=== PATIENT | male | born 1965 | race Caucasian/White ===

== ENCOUNTER → 2016-12-07 | Day surgery (SDC) | payer BC ==
[2016-11-29 11:19] VITALS: Ht 167.6 cm; Wt 129.6 kg
[~2016-12-07] VITALS: Ht 167.6 cm; Wt 129.6 kg
[~2016-12-07] MED LIST: ATOR-22 PO; COEN75CA PO; HYDR12.55 PO; KRIL1000 PO; LIDOCAINE HCL 2% 2 ML VIAL (20MG/ML) ONE; LOSA50TA6 PO; MIDAZOLAM HCL 1 MG/ML 2ML VIAL ONE; MOME6000 NAE; ONDANSETRON INJ 2 MG/ML 2 ML VIAL ONE; PROPOFOL IV EMULSION 10 MG/ML 20 ML VIAL IV ONE; ROSU5TAB PO; nasonex INTNAS
[2016-12-07 14:43] VITALS: PULSE 81; TEMP 36.6; O2SAT 97
[2016-12-07 14:51] VITALS: BP 181/86
--- NOTE | 2016-12-07 15:04 | Endo History and Physical ---
History & Physical Date of Service: Dec 07, 2016. Chief Complaint: family history of colon cancer,screening,history of polyps Referring Physician: DEN Orellana III History of Present Illness 51 yo CM who presents for colonoscopy secondary to family history of colon cancer. Past Surgical History Hx Cardiac Surgery: No Hx Internal Defibrillator: No Hx Pacemaker: No Hx Abdominal Surgery: No Hx of Implantable Prosthesis: No Hx Post-Op Nausea and Vomiting: No Hx Cancer Surgery: No Hx Thoracic Surgery: No Hx Orthopedic: No Hx Urinary Tract Surgery: No Family History Colon CA, Polyp Social History Smoking Status: Former Smoker Hx Substance Use: No Hx Alcohol Use: Yes (OCCASSIONALLY) Allergies Coded Allergies: Penicillins (Verified Allergy, Mild, UNSURE, OVER 30 YEARS AGO, 12/07/16) Current Medications Reported Home Medications Medications Dose Route/Sig Max Daily Dose Days Date Category [nasonex] 1 Fiatt INTNAS BID 12/07/16 Reported Lipitor (Atorvastatin Calcium) 20 Mg Tab 1 Tab PO DAILY 30 12/07/16 Reported Vital Signs Weight (Kilograms): 129.55 Height (Feet): 5 Height (Inches): 6 Date Time Temp Pulse Resp B/P Pulse Ox O2 Delivery O2 Flow Rate FiO2 12/07/16 14:51 181/86 12/07/16 14:49 195/98 12/07/16 14:43 36.6 81 20 222/91 97 Room Air 217/103 Physical Exam General Appearance: WD/WN, no apparent distress Respiratory/Chest: Auscultation: breath sounds normal Cardiovascular: Heart Auscultation: RRR Abdomen: Bowel Sounds: normal Inspection & Palpation: soft, non-distended, no tenderness, guarding & rebound Assessment and Plan Assessment: 51 yo CM who presents for colonoscopy secondary to family history of colon cancer. Plan: Patient with high blood pressure, morbid obesity, and has not been seen by PCP in many years. Will cancel colonoscopy at present after discussion with Dr. Milton of Anesthesia.
--- NOTE | 2016-12-07 15:14 | Anesthesiology Progress Note ---
Anesthesia Progress Note Date of Service Dec 07, 2016. Progress Notes Pt was scheduled for a screening colonoscopy today. Upon admission, his blood pressure ranged from 185-220/90/110. The pt remains asymptomatic without CP, NOEL , or SOB. The pt does not regularly see a physician. The pt is scheduled to see his primary care physician next week. I spoke with Dr. Bell, and we were in agreement that the procedure be postponed until the patient had better blood pressure control. Dr. Bell and I spoke with the patient about our concerns. He was understanding of the situation.
== END | disposition home or self-care (01) ==
LOC: C.GI 14:23
PROVIDERS: ATTEND Internal Medicine
DX: Z12.11 Encounter for screening for malignant neoplasm of colon (principal); Z86.010 Personal history of colon polyps; Z80.0 Family history of malignant neoplasm of digestive organs; Z87.891 Personal history of nicotine dependence; Z88.0 Allergy status to penicillin

== ENCOUNTER → 2016-12-10 | Outpatient (CLI) | payer BC ==
[~2016-12-10] MED LIST changes: -LIDOCAINE HCL 2% 2 ML VIAL (20MG/ML) ONE; -MIDAZOLAM HCL 1 MG/ML 2ML VIAL ONE; -ONDANSETRON INJ 2 MG/ML 2 ML VIAL ONE; -PROPOFOL IV EMULSION 10 MG/ML 20 ML VIAL IV ONE
[2016-12-10 13:19] LABS: ALT/SGPT 41 U/L (12-78); AST/SGOT 21 U/L (15-37); BLOOD UREA NITROGEN 15 mg/dl (7-18); BUN/CREATININE RATIO 14.8 (10-20); CALCIUM 8.9 mg/dl (8.5-10.1); CARBON DIOXIDE 31 mmol/L (21-32); CHLORIDE 106 mmol/L (98-107); GLUCOSE 87 mg/dl (70-99); SODIUM 143 mmol/L (136-145)
[2016-12-10 13:21] LABS: ALB/GLOB RATIO 1.1 (0.9-2); ALKALINE PHOSPHATASE 71 U/L (45-117); CHOLESTEROL 198 mg/dl (0-200); CHOLESTEROL/HDL RATIO 6.4; HDL CHOLESTEROL 31 mg/dl; LDL CHOLESTEROL CALCULATED 143 mg/dl; TRIGLYCERIDES 122 mg/dl (0-150); VERY LOW DENSITY LIPOPROT CALC 24 mg/dl
== END | disposition home or self-care (01) ==
LOC: C.LABBC 10:03
PROVIDERS: ATTEND Nurse Practitioner Family
DX: J31.0 Chronic rhinitis (principal); R01.1 Cardiac murmur, unspecified; E78.5 Hyperlipidemia, unspecified; E66.9 Obesity, unspecified

== ENCOUNTER → 2017-01-14 | Outpatient (CLI) | payer BC ==
[2017-01-14 13:42] LABS: MAGNESIUM 2.3 mg/dl (1.8-2.4); THYROID STIMULATING HORMONE 0.924 uIu/ml (0.300-4.500)
== END | disposition home or self-care (01) ==
LOC: C.LABBC 11:10
PROVIDERS: ATTEND Nurse Practitioner Family
DX: I10 Essential (primary) hypertension (principal)

== ENCOUNTER → 2017-03-15 | Day surgery (SDC) | payer BC ==
[2017-03-08 11:21] VITALS: Ht 167.6 cm; Wt 129.6 kg
[~2017-03-15] VITALS: Ht 167.6 cm; Wt 129.6 kg
[~2017-03-15] MED LIST changes: -ATOR-22 PO; +LIDOCAINE HCL 2% 2 ML VIAL (20MG/ML) ONE; +MIDAZOLAM HCL 1 MG/ML 2ML VIAL ONE; +ONDANSETRON INJ 2 MG/ML 2 ML VIAL ONE; +PROPOFOL IV EMULSION 10 MG/ML 20 ML VIAL IV ONE; +SODIUM CHLORIDE 0.9% 500ML 500 ML IV ONE; -nasonex INTNAS
--- NOTE | 2017-03-15 11:30 | Endo History and Physical ---
History & Physical Date of Service: Mar 15, 2017. Chief Complaint: Family history of colon cancer (father) History of colon polyps Referring Physician: Lorenzo Mortensen History of Present Illness 51 yo CM who presents for colonoscopy secondary to history of colon polyps and family history of colon polyps. Past Surgical History Hx Cardiac Surgery: No Hx Internal Defibrillator: No Hx Pacemaker: No Hx Abdominal Surgery: No Hx Post-Op Nausea and Vomiting: No Hx Cancer Surgery: No Hx Thoracic Surgery: No Hx Orthopedic: No Hx Urinary Tract Surgery: No Family History Colon CA, Polyp Social History Smoking Status: Former Smoker Hx Substance Use: No Hx Alcohol Use: Yes (OCCASIONAL) Allergies Coded Allergies: Penicillins (Verified Allergy, Mild, UNSURE, OVER 30 YEARS AGO, 03/08/17) Current Medications Reported Home Medications Medications Dose Route/Sig Max Daily Dose Days Date Category Co Q-10 (Coenzyme Q10 (Ubidecarenone)) 75 Mg Cap 1 Cap PO QPM 03/08/17 Reported Krill Oil 1 Cap Cap 1 Cap PO QPM 03/08/17 Reported Crestor (Rosuvastatin Calcium) 5 Mg Tab 5 Mg PO QAM 03/08/17 Reported Mometasone Furoate (Mometasone Furoate (Nasal)) 50 Mcg/Act Spr 2 Sprays BHUPENDRA HS 03/08/17 Reported Cozaar (Losartan Potassium) 50 Mg Tab 50 Mg PO BID 03/08/17 Reported Hydrochlorothiazide 12.5 Mg Tab 1 Tab PO BID 03/08/17 Reported Vital Signs Weight (Kilograms): 129.55 Height (Feet): 5 Height (Inches): 6 Physical Exam General Appearance: WD/WN, no apparent distress Respiratory/Chest: Auscultation: breath sounds normal Cardiovascular: Heart Auscultation: RRR Abdomen: Bowel Sounds: normal Inspection & Palpation: soft, non-distended, no tenderness, guarding & rebound Assessment and Plan Assessment: 51 yo CM who presents for colonoscopy secondary to history of colon polyps and family history of colon polyps. Plan: Proceed with colonoscopy.
[2017-03-15 11:34] VITALS: TEMP 36.9
--- NOTE | 2017-03-15 12:33 | Discharge Instructions ---
Endoscopy Patient Instructions Date / Procedure(s) Performed Mar 15, 2017. Colonoscopy Allergy Information Coded Allergies: Penicillins (Verified Allergy, Mild, UNSURE, OVER 30 YEARS AGO, 03/08/17) Discharge Date / Findings Mar 15, 2017. Ascending colon polyps x3 Internal hemorrhoids Medication Instructions OK to resume all medications today as prescribed Reported Home Medications Medications Dose Route/Sig Max Daily Dose Days Date Category Co Q-10 (Coenzyme Q10 (Ubidecarenone)) 75 Mg Cap 1 Cap PO QPM 03/08/17 Reported Krill Oil 1 Cap Cap 1 Cap PO QPM 03/08/17 Reported Crestor (Rosuvastatin Calcium) 5 Mg Tab 5 Mg PO QAM 03/08/17 Reported Mometasone Furoate (Mometasone Furoate (Nasal)) 50 Mcg/Act Spr 2 Sprays BHUPENDRA HS 03/08/17 Reported Cozaar (Losartan Potassium) 50 Mg Tab 50 Mg PO BID 03/08/17 Reported Hydrochlorothiazide 12.5 Mg Tab 1 Tab PO BID 03/08/17 Reported Provider Instructions Activity Restrictions - No exercising or heavy lifting for 24 hours. - Do not drink alcohol the day of the procedure. - Do not drive a car or operate machinery until the day after the procedure. - Do not make any important decisions or sign important papers in 24 hours after the procedure. Following Day: - Return to full activity which may include returning to work/school. Diet Start your diet with liquids and light foods (jello, soup, juice, toast). Then eat your usual diet if not nauseated. Treatment For Common After Affects For mild abdominal pain, bloating, or excessive gas: - Rest - Eat lightly - Lie on right side Follow-Up Information Follow-up with DEN Orellana III as scheduled Anesthesia Information What You Should Know You have had a procedure that required some medicine to reduce anxiety and discomfort. This treatment is called moderate sedation. After receiving the treatment, you may be sleepy, but you will be able to breathe on your own. The effects of the treatment may last for several hours. Follow these instructions along with Activity/Diet recommendations noted above: * Do NOT do anything where dizziness or clumsiness would be dangerous. * Rest quietly at home today, then you can be up and about tomorrow. * Have a responsible person stay with you the rest of today. * You may have had an I.V. today. If so, you may take the dressing off later today. Recommendations Call your doctor if: * Trouble breathing * Continuous vomiting for more than 24 hours * Temperature above 101 degrees * Severe abdominal pain or bloating * Pain not relieved by pain medicine ordered * There is increased drainage or redness from any incision * A large amount of rectal bleeding greater than 2-3 tablespoons. (If you had a polyp/s removed or have hemorrhoids, a small amount of blood - from the rectum is to be expected.) * You have any unanswered questions or concerns. IN THE EVENT OF A SERIOUS EMERGENCY, GO TO THE NEAREST EMERGENCY ROOM Your discharge instructions were prepared by provider Rodrigo Bell. Patient Instructions Signature Page Jarocho Baugh Patient (or Guardian) Signature/Date: I have read and understand the instructions given to me by my caregivers. Caregiver/RN/Doctor Signature/Date: The above-named patient and/or guardian has received patient instructions on this date. + Original Patient Signature Page (only) stays with chart. Please make copy for patient.
--- NOTE | 2017-03-15 12:36 | GI REPORT ---
Procedure Date: 03/15/2017 12:06 PM Procedure: Colonoscopy Indications: High risk colon cancer surveillance: Personal history of colonic polyps, Family history of colon cancer in a first-degree relative Medicines: Monitored Anesthesia Care Complications: No immediate complications. Estimated Blood Loss: Estimated blood loss: none. Procedure: Pre-Anesthesia Assessment: - Prior to the procedure, a History and Physical was performed, and patient medications and allergies were reviewed. The patient's tolerance of previous anesthesia was also reviewed. The risks and benefits of the procedure and the sedation options and risks were discussed with the patient. All questions were answered, and informed consent was obtained. Prior Anticoagulants: The patient has taken no previous anticoagulant or antiplatelet agents. ASA Grade Assessment: II - A patient with mild systemic disease. After reviewing the risks and benefits, the patient was deemed in satisfactory condition to undergo the procedure. After I obtained informed consent, the scope was passed under direct vision. Throughout the procedure, the patient's blood pressure, pulse, and oxygen saturations were monitored continuously. The scope was introduced through the anus and advanced to the terminal ileum. The colonoscopy was performed without difficulty. The patient tolerated the procedure well. The quality of the bowel preparation was good. The terminal ileum, ileocecal valve, appendiceal orifice, and rectum were photographed. Findings: Three sessile polyps were found in the ascending colon. The polyps were 4 to 9 mm in size. These polyps were removed with a hot snare. Resection and retrieval were complete. To prevent bleeding after the polypectomy, two hemostatic clips were successfully placed (MR conditional). There was no bleeding at the end of the procedure. Non-bleeding internal hemorrhoids were found during retroflexion. The hemorrhoids were small. Impression: - Three 4 to 9 mm polyps in the ascending colon, removed with a hot snare. Resected and retrieved. Clips (MR conditional) were placed. - Non-bleeding internal hemorrhoids. Recommendation: - Resume previous diet. - Continue present medications. - Repeat colonoscopy for surveillance based on pathology results. - Return to primary care physician as previously scheduled. Rodrigo Bell DO 03/15/2017 12:35:16 PM This report has been signed electronically. Note Initiated On: 03/15/2017 12:06 PM I attest to the content of the Intraoperative Record and orders documented therein, exceptions below
[2017-03-15 13:06] VITALS: BP 129/81; PULSE 70; O2SAT 94
--- NOTE | 2017-03-15 13:33 | Anesthesiology Progress Note ---
Anesthesia Post Op Note Date & Time Mar 15, 2017 at 13:32 Vital Signs Pain Intensity: 0 Vital Signs Past 12 Hours Date Time Temp Pulse Resp B/P Pulse Ox O2 Delivery O2 Flow Rate FiO2 03/15/17 13:06 70 20 129/81 94 Room Air 03/15/17 12:48 67 20 147/78 94 Room Air 03/15/17 12:33 79 20 141/78 95 Room Air 03/15/17 11:34 36.9 91 20 156/86 97 Room Air Notes Mental Status: alert / awake / arousable, participated in evaluation Pt Amnestic to Procedure: Yes Nausea / Vomiting: adequately controlled Pain: adequately controlled Airway Patency, RR, SpO2: stable & adequate BP & HR: stable & adequate Hydration State: stable & adequate Anesthetic Complications: no major complications apparent
== END | disposition home or self-care (01) ==
LOC: C.GI 10:58
PROVIDERS: ATTEND Internal Medicine
DX: Z12.11 Encounter for screening for malignant neoplasm of colon (principal); D12.2 Benign neoplasm of ascending colon; K64.8 Other hemorrhoids; Z87.891 Personal history of nicotine dependence; Z83.71 Family history of colonic polyps; Z80.0 Family history of malignant neoplasm of digestive organs

== ENCOUNTER → 2017-06-10 | Outpatient (CLI) | payer BC ==
[~2017-06-10] MED LIST changes: -LIDOCAINE HCL 2% 2 ML VIAL (20MG/ML) ONE; -MIDAZOLAM HCL 1 MG/ML 2ML VIAL ONE; -ONDANSETRON INJ 2 MG/ML 2 ML VIAL ONE; -PROPOFOL IV EMULSION 10 MG/ML 20 ML VIAL IV ONE; -SODIUM CHLORIDE 0.9% 500ML 500 ML IV ONE
[2017-06-10 11:16] LABS: BASO % 0.3 %; BASO ABS # 0.02 K/uL (0-0.2); COMPLETE YES; EOS % 6.8 %; HEMATOCRIT 46.4 % (42-52); IG% 0.2 %; LYMPH % 32.3 %; LYMPH ABS # 2.06 K/uL (1.2-3.4); MEAN CELL VOLUME 92.8 fL (80-100); MEAN CORPUSCULAR HGB CONC 33.4 g/dl (32-36); MEAN PLATELET VOLUME 11.6 fL (7.4-10.4); MONO % 8.5 %; NEUT % 51.9 %; PLATELET COUNT 228 K/uL (130-400); WHITE BLOOD COUNT 6.37 K/uL (4.8-10.8)
[2017-06-10 11:26] LABS: ALT/SGPT 48 U/L (12-78); BLOOD UREA NITROGEN 21 mg/dl (7-18); BUN/CREATININE RATIO 18.7 (10-20); CALCIUM 9.4 mg/dl (8.5-10.1); CARBON DIOXIDE 31 mmol/L (21-32); CHLORIDE 104 mmol/L (98-107); CHOLESTEROL 165 mg/dl (0-200); GLUCOSE 87 mg/dl (70-99); POTASSIUM 4.3 mmol/L (3.5-5.1); SODIUM 139 mmol/L (136-145); TRIGLYCERIDES 110 mg/dl (0-150); VERY LOW DENSITY LIPOPROT CALC 22 mg/dl
[2017-06-10 11:30] LABS: ALB/GLOB RATIO 1.1 (0.9-2); ALKALINE PHOSPHATASE 63 U/L (45-117); AST/SGOT 21 U/L (15-37); CHOLESTEROL/HDL RATIO 5.9; HDL CHOLESTEROL 28 mg/dl; LDL CHOLESTEROL CALCULATED 115 mg/dl
== END | disposition home or self-care (01) ==
LOC: C.LABBC 09:01
PROVIDERS: ATTEND Nurse Practitioner Family
DX: E66.9 Obesity, unspecified (principal); E78.5 Hyperlipidemia, unspecified; J31.0 Chronic rhinitis; I10 Essential (primary) hypertension

== ENCOUNTER → 2017-09-13 | Outpatient (CLI) | payer BC ==
--- NOTE | 2017-09-13 13:11 | DIAGNOSTIC IMAGING REPORT ---
WHOLE BODY PET/CT CLINICAL HISTORY: Melanoma. COMPARISON STUDY: MRI of the brain dated 09/13/2017. TECHNIQUE: One hour following the IV administration of 11.24 mCi of F-18 FDG, whole-body PET/CT examination was performed from the vertex to the feet. Noncontrast CT is performed for the purposes of anatomic correlation and attenuation correction. Note that this does not reflect a diagnostic CT examination. Images were reviewed on a separate [employer] independent workstation. Fused images were obtained. Standard uptake values reported are maximum values within the region of interest expressed in gm/mL. FINDINGS: PET FINDINGS: Head and neck: There is expected physiologic activity within the visualized brain parenchyma at the skull base and the salivary glands. Low level pharyngeal activity is likely within physiologic limits. Thorax: Evaluation of the thorax demonstrates expected physiologic myocardial activity. There is a 2 mm nodule at the right lung base seen on image #144. This is too small for PET characterization. There is an approximately 3 cm cutaneous defect identified in the left upper back seen on image #101. There is induration within the surrounding deep soft tissues with nonspecific FDG activity. This demonstrates a maximum SUV of 4.8. Abdomen and pelvis: There is expected activity within the liver, spleen, kidneys, renal collecting system, and bladder. Low-level bowel activity is likely within physical limits. Lower extremities: No lower extremity lesion is identified. Unenhanced CT images: The brain parenchyma is normal in appearance. The bony orbits are intact and orbital contents are within normal limits. There is opacification of the maxillary, ethmoid, and left frontal sinuses. Mild mucosal thickening and secretions are seen within the right frontal sinus and the same sinuses. The mastoid air cells are well pneumatized. The salivary and thyroid glands are within normal limits. No cervical lymphadenopathy is seen. The thoracic aorta is normal in caliber. The heart is normal in size and with pericardial effusion. A tiny hiatal hernia is identified. The lungs are clear. There is no axillary, mediastinal, or hilar adenopathy. The unenhanced liver, spleen, adrenal glands, kidneys, and pancreas are grossly unremarkable. There are calcified gallstones. The abdominal aorta is normal in course and caliber noting moderate atherosclerotic calcification. There is no bowel obstruction. Normal appendix is identified. There is a small fat-containing umbilical hernia. No intraperitoneal free air or abdominal ascites is seen. Excreted contrast is present within the bladder lumen. The bladder, prostate, and seminal vesicles are otherwise normal as imaged. There is no abdominal, pelvic, or inguinal lymphadenopathy. No destructive bony lesion is seen. A small bone island is incidentally noted in the sacrum. The lower extremity soft tissues are normal as visualized. IMPRESSION: 1. There is a cutaneous defect identified in the left upper back with associated soft tissue thickening and low-level FDG activity. This is likely on a postoperative basis. Attention at follow-up is recommended. 2. There is no evidence of FDG avid metastatic disease. 3. There is a 2 mm pulmonary at the right lung base. This is too small for PET characterization and may represent a tiny calcified granuloma. Attention at follow-up is recommended. 4. Cholelithiasis. 5. Additional findings as above. Electronically signed by: Serg Hinkle M.D. 09/13/2017 1:09 PM Dictated Date/Time: 09/13/2017 12:58 PM
== END | disposition home or self-care (01) ==
LOC: C.PET 09:23
PROVIDERS: ATTEND Plastic Surgery
DX: C43.9 Malignant melanoma of skin, unspecified (principal); R93.7 Abnormal findings on diagnostic imaging of other parts of musculoskeletal system; R91.8 Other nonspecific abnormal finding of lung field; K80.20 Calculus of gallbladder without cholecystitis without obstruction; J34.89 Other specified disorders of nose and nasal sinuses

== ENCOUNTER → 2017-09-13 | Outpatient (CLI) | payer BC ==
[~2017-09-13] MED LIST changes: +GADAVIST IV PRN
--- NOTE | 2017-09-13 07:41 | DIAGNOSTIC IMAGING REPORT ---
MRI OF THE BRAIN WITHOUT AND WITH IV CONTRAST CLINICAL HISTORY: MELANOMA COMPARISON STUDY: No previous studies for comparison. TECHNIQUE: MRI of the brain was performed from the vertex to the skull base utilizing various T1 and T2 weighted sequences. Following the IV administration of 13 mL of Gadavist contrast, additional enhanced images were obtained. FINDINGS: Sagittal T1, axial diffusion, proton density and T2 weighted axial, coronal FLAIR, and pre and post axial T1-weighted images were acquired. These were supplemented with post gadolinium coronal T1 weighted images. No intra or extra-axial mass lesions are visualized. Axial diffusion-weighted images reveal no evidence of acute or subacute infarction. There is no evidence of ventricular dilatation. Proton density T2-weighted and FLAIR images reveal no significant intraparenchymal signal abnormalities. There are no abnormal flow voids. There is no evidence of pathologic enhancement. There are extensive polypoid inflammatory changes present within the ethmoid and maxillary sinuses. IMPRESSION: 1. No evidence of intracranial metastasis 2. Extensive polypoid inflammatory changes within the ethmoid and maxillary sinuses Electronically signed by: Liam Gama M.D. 09/13/2017 7:39 AM Dictated Date/Time: 09/13/2017 7:34 AM
== END | disposition home or self-care (01) ==
LOC: C.MRI 06:42
PROVIDERS: ATTEND Plastic Surgery
DX: C43.9 Malignant melanoma of skin, unspecified (principal); J34.89 Other specified disorders of nose and nasal sinuses

== ENCOUNTER → 2017-12-08 | Outpatient (CLI) | payer BC ==
[~2017-12-08] MED LIST changes: -GADAVIST IV PRN
[2017-12-08 15:38] LABS: ALBUMIN 3.8 gm/dl (3.4-5.0); BLOOD UREA NITROGEN 15 mg/dl (7-18); CARBON DIOXIDE 28 mmol/L (21-32); CREATININE 0.89 mg/dl (0.60-1.40); GLUCOSE 92 mg/dl (70-99); POTASSIUM 3.9 mmol/L (3.5-5.1); SODIUM 138 mmol/L (136-145)
[2017-12-08 15:41] LABS: ALKALINE PHOSPHATASE 59 U/L (45-117); ALT/SGPT 47 U/L (12-78); AST/SGOT 22 U/L (15-37); CHOLESTEROL 145 mg/dl (0-200); LDL CHOLESTEROL CALCULATED 93 mg/dl; TOTAL PROTEIN 7.6 gm/dl (6.4-8.2)
== END | disposition home or self-care (01) ==
LOC: C.LABBC 10:17
PROVIDERS: ATTEND Nurse Practitioner Family
DX: E66.9 Obesity, unspecified (principal); E78.5 Hyperlipidemia, unspecified; J31.0 Chronic rhinitis; I10 Essential (primary) hypertension

== ENCOUNTER → 2018-03-19 | Outpatient (CLI) | payer BC ==
[~2018-03-19] MED LIST changes: +OPTIRAY 320 IV PRN
--- NOTE | 2018-03-19 08:25 | DIAGNOSTIC IMAGING REPORT ---
CT (CHEST) THORAX WITH CLINICAL HISTORY: 52 years-old Male presenting with melanoma. TECHNIQUE: Multidetector CT imaging of the chest was performed without the use of intravenous contrast. IV contrast: 120 mL of Optiray 320. A dose lowering technique was used consistent with the principles of ALARA (as low as reasonably achievable). COMPARISON: PET/CT from 09/13/2017. CT DOSE (mGy.cm): The estimated cumulative dose is 2594.[address] abdomen and pelvis. FINDINGS: Agriculture Inspector topogram: Unremarkable. On soft tissue windows, normal thyroid and thoracic inlet. Postsurgical changes of the cutis and subjacent subcutaneous fat in the left posterior chest wall. Subjacent fat infiltration extends to the superficial fascia. This represents significant interval healing of the postsurgical wound present on prior PET/CT.Mildly prominent right hilar lymph node (series or image 137). Evaluation of the paramjit on prior noncontrast PET/CT limits comparison to prior. No other sites of lymphadenopathy. Normal aorta. Normal heart size. No pericardial or pleural effusion. Hepatic steatosis. On lung windows, calcified granuloma again noted at the right lower lobe. Minimal dependent groundglass opacity at the lung bases likely atelectasis. Minimal subtle mosaic attenuation suggest small airways disease. Peripheral solid 4 mm nodule at the left lower lobe (series 4 image 205), unchanged since 09/13/2017. Mild bronchial wall thickening. Central airways patent. On bone windows, sclerotic lesion in T3 unchanged and likely bone island. No destructive osseous lesion. Mild degenerative changes noted in the thoracic spine. IMPRESSION: 1. Prominence of a right hilar lymph node, nonspecific and possibly reactive. Attention on follow-up. The likelihood of this representing intrathoracic metastatic disease in the absence of suspicious pulmonary nodules or mediastinal lymphadenopathy is low. No other evidence of thoracic metastatic disease. 2. Solid 4 mm nodule at the left lower lobe unchanged from prior exam. Attention on follow-up. 3. Right lower lobe granuloma. Electronically signed by: Terrence Mackay M.D. 03/19/2018 8:24 AM Dictated Date/Time: 03/19/2018 8:15 AM
--- NOTE | 2018-03-19 08:29 | DIAGNOSTIC IMAGING REPORT ---
ABDOMEN AND PELVIS CT WITH IV AND ORAL CONTRAST CT DOSE: 2594.31 mGy.cm HISTORY: Follow-up study in a patient with history of malignant melanoma. Subsequent treatment strategy X TECHNIQUE: Multiaxial CT images of the abdomen and pelvis were performed following the use of intravenous and oral contrast. A dose lowering technique was utilized adhering to the principles of ALARA. COMPARISON STUDY: CT chest of same day, PET CT 09/13/2017. FINDINGS: 3 mm calcified granuloma of the posterior basal segment right lower lobe. Mild subsegmental dependent bibasilar atelectasis. Punctate calcific granulomata of the basal left lower lobe also noted. No pneumatosis or pneumoperitoneum. Imaged inferior cardiac chambers are unremarkable. There is suggested fatty infiltration of the liver. No suspicious focal hepatic mass lesions are identified. No intrahepatic biliary ductal dilation. Layering gallstones are seen within the gallbladder lumen without CT evidence of acute cholecystitis. Common bile duct appears normal. Spleen, pancreas and adrenal glands are also within normal limits. Mildly prominent nonspecific periportal lymph nodes measure up to 9 mm in short axis. Low attenuating lesions of the kidneys measuring up to 11 mm within the inferior pole left kidney suggests renal cysts. No renal calculi or obstructive uropathy. Ureters are unremarkable. The bladder is partially decompressed. Calcifications are noted within the central prostate. Small bilateral fat filled inguinal hernias. There is mild atherosclerosis of the aorta without aneurysm. No bowel obstruction or focal bowel wall thickening identified. Appendix appears normal. Soft tissues appear unremarkable. Bones appear intact without suspicious lytic or blastic bony lesions identified. 10 mm sclerotic focus of the left S1 vertebral body suggests bone island. Mildly increased sclerosis involving the lateral aspects of the left ninth rib. Unchanged and may reflect area of remote trauma. Unchanged bone island of the left iliac wing. IMPRESSION: 1. No acute intra-abdominal or intrapelvic abnormality identified. 2. No evidence of metastatic disease or pathologic adenopathy within the abdomen or pelvis. 3. Cholelithiasis without CT evidence of acute cholecystitis. 4. Additional findings as above. Electronically signed by: Maksim Stephen M.D. 03/19/2018 8:27 AM Dictated Date/Time: 03/19/2018 8:17 AM
== END | disposition home or self-care (01) ==
LOC: C.CTS 07:34
PROVIDERS: ATTEND Plastic Surgery
DX: K80.20 Calculus of gallbladder without cholecystitis without obstruction (principal); R59.0 Localized enlarged lymph nodes; R91.1 Solitary pulmonary nodule; J84.10 Pulmonary fibrosis, unspecified; C43.9 Malignant melanoma of skin, unspecified

== ENCOUNTER → 2018-06-09 | Outpatient (CLI) | payer BC ==
[~2018-06-09] MED LIST changes: -OPTIRAY 320 IV PRN
[2018-06-09 11:00] LABS: ALBUMIN 3.8 gm/dl (3.4-5.0); ALKALINE PHOSPHATASE 58 U/L (45-117); ALT/SGPT 47 U/L (12-78); AST/SGOT 23 U/L (15-37); BLOOD UREA NITROGEN 16 mg/dl (7-18); CALCIUM 8.9 mg/dl (8.5-10.1); CARBON DIOXIDE 28 mmol/L (21-32); CHOLESTEROL 127 mg/dl (0-200); CREATININE 0.98 mg/dl (0.60-1.40); GLUCOSE 90 mg/dl (70-99); LDL CHOLESTEROL CALCULATED 77 mg/dl; POTASSIUM 3.9 mmol/L (3.5-5.1); SODIUM 140 mmol/L (136-145); TOTAL PROTEIN 7.5 gm/dl (6.4-8.2)
== END | disposition home or self-care (01) ==
LOC: C.LAB1850 09:49
PROVIDERS: ATTEND Nurse Practitioner Family
DX: E66.9 Obesity, unspecified (principal); E78.5 Hyperlipidemia, unspecified; J31.0 Chronic rhinitis; C43.9 Malignant melanoma of skin, unspecified; I10 Essential (primary) hypertension